=== PATIENT | male | born 1980 | race Hispanic/Latino ===

== ENCOUNTER 2023-10-11 18:30 | Emergency (ER) | payer BC ==
--- OUTSIDE RECORDS SUMMARY | 2023-10-11 18:32 | XMS REPORT | Continuity of Care Document ---
Author Name Unknown Address [address] [place] [address] [facility] thconnect Address [address] [place] [address] Care Team Providers Care Wheel Setter Name Role Phone ADA FORD Attending Clinician Unavailable ARELY RUIZ Attending Clinician Unava ilable Payers Payer Name Policy Type Policy Number Effective Date Expirati on Date Source BCBS 2 [id number] 2023 00:00:00 Social History Social Habit Start Date Stop Date Quantity Comments Source Sexual orientation Prem Cohen - External Tobacco use and exposure 2023-05-05 00:00:00 2023-05-05 00:00:00 Smokeless tobacco non-user Caitie Cohen - External Alcohol intake 2023-05-05 00:00:00 2023-05-05 00:00:00 Lifetime non-drinker (finding) Caitie Cohen - External History of Social function 2023-05-05 00:00:00 2023-05-05 00:00:00 Caitie Cohen - External Sex Assigned At 1980 00:00:00 1980 00:00:00 Caitie Cohen - External Smoking Status Start Date Stop Date Source Never smoked tobacco Caitie Cohen - External Medications Ordered Medication Name Filled Medication Name Start Date Stop Date Current Medication? Ordering Clinician Indication Dosage Frequency Signature (SIG) Comments Components Source Triamcinolo ne Acetonide (KENALOG) 40 mg/mL 2022-06 22:30: 00 05-05 22:35 :00 No [id number] 40mg Caitie nicole Betamethaso ne Sod Phos Acet (CELESTONE) [6 (3-3)] mg/mL 2022-06 22:30: 00 05-05 22:34 :00 No [id number] 6mg Caitie nicole methylPREDN ISolone 4 MG oral Tablet Therapy Pack 2022-06 00:00: 00 Yes [id number] 1{taylor} Take 1 taylor by mouth See Admin Instructio ns Use as directed. Caitie nicole Triamcinolo ne Acetonide 0.1 % apply externally Cream 2022-06 00:00: 00 06-03 05:59 :00 No [id number] Apply to affected areas twice a day for one week. Caitie nicole Vital Signs Vital Name Observation Time Observation Value Comments S ource Systolic blood pressure 2023-05-05 22:06:00 135 mm[Hg] Caitie allen - External Diastolic blood pressure 2023-05-05 22:06:00 87 mm[Hg] Caitie allen - External Heart rate 2023-05-05 22:06:00 110 /min Gennaro Cohen - External Body temperature 2023-05-05 22:06:00 36.61 Conchita Caitie Cohen - External Respiratory rate 2023-05-05 22:06:00 16 /min Caitie Cohen - External Body height 2023-05-05 22:06:00 172.7 cm Ericka Cohen - External Body weight 2023-05-05 22:06:00 93.441 kg Ericka Cohen - External BMI 2023-05-05 22:06:00 31.32 kg/m2 Ericka Cohen - External Oxygen saturation in Arterial blood by Pulse oximetry 2023-05-05 22:06:00 99 /min Caitie allen - External Encounters Start Date/Time End Date/Time Encounter Type Admission Type Attending [facility] Care Department Encounter ID Source 2023-05-14 15:00:00 2023-05-14 15:00:00 Outpatient ADA FORD [id number] Caitie Cohen 2023-05-05 16:15:00 2023-05-05 16:15:00 Outpatient ARELY RUIZ [id number] Caitie Cohen 2023-01-27 14:18:55 2023-01-27 14:18:55 Outpatient [facility] [id number] Toney Montgomery
--- NOTE | 2023-10-11 19:10 | EDPHYS ---
Physician Documentation [facility] Name: Sean Mayen Age: 42 yrs Sex: Male : 1980 Arrival Date: 10/11/2023 Time: 18:30 Bed IW1 Private MD: ED Physician Sydney Moody HPI: 10/10 18:55 This 42 yrs old Male presents to ER via Unassigned with complaints of Ankle cp Injury. 18:55 The patient presents with an injury, pain, that is acute, swelling. The complaints cp affect the medial side of left ankle. Onset: The symptoms/episode began/occurred today. Context: resulted from a mis-step by the patient, while working in yard, The patient can fully bear weight on the affected extremity. the patient is able to ambulate, with mild difficulty. 18:55 Associated signs and symptoms: The patient has no apparent associated signs or symptoms.cp ROS: 18:57 MS/extremity: Positive for pain, swelling, tenderness, of the left ankle, Negative for cp decreased range of motion, deformity, 18:57 Constitutional: Negative for fever, cp Exam: 19:00 Constitutional: The patient appears in no acute distress, alert, awake, well developed, cp well nourished, 19:00 Musculoskeletal/extremity: Extremities: noted in the left ankle: tenderness, mild cp swelling noted medial side of left ankle, ROM: limited passive range of motion due to pain, in the left ankle, Pulses: noted to be 2+ in the left dorsalis pedis artery, the left foot Sensation intact. Achilles tendon palpated and intact. 19:00 Head/Face: Normocephalic, atraumatic. cp 19:00 Respiratory: the patient does not display signs of respiratory distress, Respirations: normal, no use of accessory muscles, no retractions, MDM: 18:54 Patient medically screened. cp 18:54 Differential diagnosis: fracture, sprain, dislocation. cp Administered Medications: No medications were administered Disposition Summary: 10/11/23 19:09 Discharge Ordered Notes: Location: Home cp Problem: new cp Symptoms: are unchanged cp Condition: Stable cp Diagnosis - Pain in left ankle and joints of left foot cp Followup: cp - With: Ho Claire MD - When: 2 - 3 days - Reason: Recheck today's complaints Discharge Instructions: - Discharge Summary Sheet cp - Elastic Bandage and RICE Therapy cp - Ankle Pain cp Forms: - Medication Reconciliation Form cp - Antibiotic Education cp - Prescription Opioid Use cp - Patient Portal Instructions cp - Leadership Thank You Letter cp Signatures: Dispatcher [employer] EDMS Sharath Monroe PA PA cp
--- NOTE | 2023-10-11 19:10 | ER ---
Nurse's Notes [facility] Name: Sean Mayen Age: 42 yrs Sex: Male : 1980 Arrival Date: 10/11/2023 Time: 18:30 Bed IW1 [facility] MD: Diagnosis: Pain in left ankle and joints of left foot Presentation: 10/10 18:50 Note Pt not in triage room upon this RN arrival for triage and vital signs assessment. nj1 Pt seen by Ronit HYDE in triage room before this RN arrived to triage room. ED Course: 18:35 Patient arrived in ED. mg5 18:35 Sharath Monroe PA is PHCP. cp 18:35 Sydney Moody MD is Attending Physician. cp 18:50 Patient's name was called from ER tran. No response. nj1 18:55 Notified Nurse Practitioner and/or Physician [employer] Employee of patient left per registration [facility] report. 19:09 Ho Claire MD is Referral Physician. cp Administered Medications: No medications were administered Outcome: 19:09 Discharge ordered by MD. cp 19:12 Patient left the ED. ss Signatures: Teresita Rizzo, RN RN ss Sharath Monroe PA PA cp Jessica North, RN RN nj1 Aubrie Rivas mg5
== END 2023-10-11 19:12 | disposition home or self-care (01) ==
LOC: ER 18:30
DX: M25.572 Pain in left ankle and joints of left foot (principal)

== ENCOUNTER 2024-03-28 14:44 | Emergency (ER) | payer BC, OTHER ==
--- OUTSIDE RECORDS SUMMARY | 2024-03-28 14:46 | XMS REPORT | Continuity of Care Document ---
Author Name Unknown Address [address] [place] [address] [facility] thconnect Address [address] [place] [address] Care Team Providers Care Electronic Health Records Specialist Name Role Phone ADA FORD Attending Clinician Unavailable ARELY RUIZ Attending Clinician Unava ilable Payers Payer Name Policy Type Policy Number Effective Date Expirati on Date Source BCBS 2 [id number] 2023 00:00:00 Social History Social Habit Start [...] 2022-06 22:30: 00 05-05 22:35 :00 No [id number] 40mg Caitie nicole Betamethaso ne Sod Phos Acet (CELESTONE) [6 (3-3)] mg/mL 2022-06 22:30: 00 05-05 22:34 :00 No [id number] 6mg Caitie nicole methylPREDN ISolone 4 MG oral Tablet Therapy Pack 2022-06 00:00: 00 Yes [id number] 1{taylor} Take 1 taylor by mouth See Admin Instructio ns Use as directed. Caitie nicole Triamcinolo ne Acetonide 0.1 % apply externally Cream 2022-06 00:00: 00 06-03 05:59 :00 No [id number] Apply to affected areas twice a day [...] 2023-05-14 15:00:00 2023-05-14 15:00:00 Outpatient ADA FORD [id number] Caitie Cohen 2023-05-05 16:15:00 2023-05-05 16:15:00 Outpatient ARELY RUIZ [id number] Caitie Cohen 2023-01-27 14:18:55 2023-01-27 14:18:55 Outpatient [facility] [id number] Toney Montgomery
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
[2024-03-28 20:40] VITALS: TEMP 97.7
[2024-03-28 20:47] VITALS: BP 134/89; O2SAT 99
== END 2024-03-28 17:59 | disposition home or self-care (01) ==
LOC: ER 14:44
DX: S06.0X0A Concussion without loss of consciousness, initial encounter (principal); V49.40XA Driver injured in collision with unspecified motor vehicles in traffic accident, initial encounter
CPT/HCPCS: 70450